=== PATIENT | female | born 1960 | race African-American/Black ===

== ENCOUNTER 2016-09-08 18:47 | Emergency (ER) | payer MEDICAID, OTHER ==
[~2016-09-08] VITALS: Ht 157.5 cm; Wt 48.5 kg
[~2016-09-08 18:47] MED LIST: BUTALB-ACETAMI1 EAC1 PO; CARBAMAZEPINE200 MG ORAL; GABAPENTIN300 MG ORAL; KEPPRA500 M4 ORAL; LEVETIRACETAM500 MG ORAL; PRAVASTATIN SOD20 M1 ORAL; TEGRETOL200 MG PO; TOPIRAMATE100 MG ORAL
[2016-09-08 19:08] VITALS: BP 159/81
[2016-09-08] MEDS ORDERED: Lidocaine 2% Visc 15ml soln ORAL ONE (19:15)
[2016-09-08] MEDS ORDERED: Famotidine 20 MG/ 2ML VIAL IVP ONE (19:15)
[2016-09-08] MEDS ORDERED: Dicyclomine HCl 10mg/5ml oral soln ORAL ONE (19:15)
[2016-09-08] MEDS ORDERED: Mylanta II UD 30ml ORAL ONE (19:15)
[2016-09-08] MEDS ORDERED: Ipratropium 0.02% Inh Soln 2.5ml UD HHN ONE (19:15)
[2016-09-08] MEDS ORDERED: Albuterol ud Inhalation HHN ONE (19:15)
[2016-09-08 19:50] LABS: TROPONIN I < 0.30 ng/mL (<=0.30)
[2016-09-08 19:55] LABS: ALANINE AMINOTRANSFERASE 15 U/L (3-33); ALBUMIN/GLOBULIN RATIO 1.5 (1.0-2.7); ANION GAP 17 (5-15); ASPARTATE AMINO TRANSFERASE 19 U/L (5-40); CALCIUM 9.2 mg/dL (8.6-10.2); CARBON DIOXIDE 23 mEQ/L (20-30); CHLORIDE 99 mEQ/L (98-107); CREATININE 0.7 mg/dL (0.5-0.9); GLOMERULAR FILTRATION RATE > 60 mL/min (>60); HEMOLYSIS 3; LIPASE 55 U/L (< 60); POTASSIUM 3.6 mEQ/L (3.4-4.9); SODIUM 139 mEQ/L (135-145); TOTAL PROTEIN 6.6 g/dL (6.6-8.7)
[2016-09-08 20:00] LABS: BASOPHILS % (AUTO) 1.2 % (0.0-2.0); EOSINOPHILS % (AUTO) 1.4 % (0.0-3.0); LYMPHOCYTES % (AUTO) 38.5 % (20.0-45.0); MEAN CORPUSCULAR HEMOGLOBIN 33.5 PG (27.0-31.0); MEAN CORPUSCULAR HGB CONC 33.6 G/DL (32.0-36.0); MEAN CORPUSCULAR VOLUME 100 FL (80-99); MEAN PLATELET VOLUME 6.9 FL (6.5-10.1); NEUTROPHILS % (AUTO) 51.9 % (45.0-75.0); PLATELET COUNT 218 K/UL (150-450); RED BLOOD COUNT 3.28 M/UL (4.20-5.40); RED CELL DISTRIBUTION WIDTH 11.8 % (11.6-14.8); WHITE BLOOD COUNT 5.8 K/UL (4.8-10.8)
[2016-09-08 20:02] LABS: APPEARANCE,URINE CLEAR; KETONES,URINE NEGATIVE (NEGATIVE); LEUKOCYTE ESTERASE ,URINE NEGATIVE (NEGATIVE); NITRITE,URINE NEGATIVE (NEGATIVE); PH,URINE 6.5 (4.5-8.0); PROTEIN,URINE NEGATIVE (NEGATIVE); UROBILINOGEN,URINE NORMAL MG/DL (0.0-1.0)
[2016-09-08 20:05] LABS: CKMB 1.6 ng/mL (< 3.8)
[2016-09-08] MEDS ORDERED: ZOFRAN ODT4 MG ORAL (20:44)
[2016-09-08] MEDS ORDERED: RANITIDINE HCL150 MG ORAL (20:44)
[2016-09-08] MEDS ORDERED: BENTYL10 MG ORAL (20:44)
[2016-09-08 21:01] VITALS: BP 125/70
[2016-09-08] MEDS ORDERED: ALBUTEROL SULF8.5 GM INH (21:15)
--- NOTE | 2016-09-09 14:23 | Emergency Room Report ---
History of Present Illness General Chief Complaint: Abdominal Pain Source: Patient Present Illness HPI 56-year-old female presents to ED for evaluation. Patient states she's been having abdominal pain with vomiting and diarrhea x3 days. Pain is cramping, 7/ 10, nonradiating. No aggravating or relieving factors. Denies chest pain or shortness of breath. Denies fevers chills. Denies dysuria or hematuria. Denies recent antibiotic use. Denies recent travel. Denies any other associated symptom Allergies: Coded Allergies: No Known Allergies (Unverified , 02/16/15) Patient History Past Medical History: HTN, COPD, seizures Past Surgical History: none Pertinent Family History: none Social History: Denies: alcohol use, drug use, smoking Now: No Immunizations: UTD Reviewed Nursing Documentation: PMH: Agreed, PSxH: Agreed Nursing Documentation-PMH Hx Hypertension: Yes Hx COPD: Yes Hx Seizures: Yes Review of Systems All Other Systems: negative except mentioned in HPI Physical Exam Vital Signs Date Time Temp Pulse Resp B/P Pulse Ox O2 Delivery O2 Flow Rate FiO2 09/08/16 18:46 98.2 69 18 139/68 100 09/08/16 19:08 Room Air Sp02 EP Interpretation: reviewed, normal General Appearance: no apparent distress, alert, GCS 15, non-toxic Head: normocephalic Eyes: bilateral eye PERRL, bilateral eye normal inspection ENT: normal ENT inspection Neck: normal inspection Respiratory: chest non-tender, normal breath sounds, speaking full sentences, wheezing Cardiovascular #1: regular rate, rhythm, no edema Gastrointestinal: normal bowel sounds, non tender, soft, non-distended, no guarding, no rebound Rectal: deferred Genitourinary: no CVA tenderness Musculoskeletal: normal inspection Neurologic: alert, oriented x3, responsive, motor strength/tone normal, sensory intact, speech normal Psychiatric: normal inspection Skin: normal inspection Lymphatic: normal inspection Medical Decision Making Diagnostic Impression: Primary Impression: Gastroenteritis Additional Impression: COPD (chronic obstructive pulmonary disease) Qualified Codes: J44.9 - Chronic obstructive pulmonary disease, unspecified ER Course Hospital Course 56-year-old F presents to ED with cramping abdominal pain with vomiting, diarrhea. also wheezing differential diagnosis: gastritis, SBO, cholecystits, gastroenteritis Clinical course Patient placed on stretcher. On youth nutritional monitor. After initial history and physical I ordered labs, IV fluids, Zofran and GI cocktail given nebulizer treatments for wheezing Labs - no leukocytosis, electrolytes ok, LFTs normal, UA unremarkable Upon reassessment, patient states pain has improved. findings consistent with gastroenteritis I feel this is a highly complex case requiring extensive working including EKG/ Rhythm strip, Xray/CT/US, Blood/urine lab work, repeat exams while in ED, and administration of strong opiates/narcotics for pain control, admission to hospital or close patient follow up. Diagnosis - gastroenteritis, COPD Stable and discharged to home with prescriptions for zofran, bentyl, albuterol. Followup with PMD. Return to ED if symptoms recur or worsen Labs Test 09/08/16 19:20 09/08/16 19:32 White Blood Count 5.8 K/UL (4.8-10.8) Red Blood Count 3.28 M/UL (4.20-5.40) Hemoglobin 11.0 G/DL (12.0-16.0) Hematocrit 32.7 % (37.0-47.0) Mean Corpuscular Volume 100 FL (80-99) Mean Corpuscular Hemoglobin 33.5 PG (27.0-31.0) Mean Corpuscular Hemoglobin Concent 33.6 G/DL (32.0-36.0) Red Cell Distribution Width 11.8 % (11.6-14.8) Platelet Count 218 K/UL (150-450) Mean Platelet Volume 6.9 FL (6.5-10.1) Neutrophils (%) (Auto) 51.9 % (45.0-75.0) Lymphocytes (%) (Auto) 38.5 % (20.0-45.0) Monocytes (%) (Auto) 7.0 % (1.0-10.0) Eosinophils (%) (Auto) 1.4 % (0.0-3.0) Basophils (%) (Auto) 1.2 % (0.0-2.0) Sodium Level 139 mEQ/L (135-145) Potassium Level 3.6 mEQ/L (3.4-4.9) Chloride Level 99 mEQ/L (98-107) Carbon Dioxide Level 23 mEQ/L (20-30) Anion Gap 17 (5-15) Blood Urea Nitrogen 13 mg/dL (7-23) Creatinine 0.7 mg/dL (0.5-0.9) Estimat Glomerular Filtration Rate > 60 mL/min (>60) Glucose Level 107 mg/dL (74-106) Calcium Level 9.2 mg/dL (8.6-10.2) Total Bilirubin < 0.2 mg/dL (0.0-1.2) Aspartate Amino Transf (AST/SGOT) 19 U/L (5-40) Alanine Aminotransferase (ALT/SGPT) 15 U/L (3-33) Alkaline Phosphatase 50 U/L (35-104) Total Creatine Kinase 99 U/L (26-140) Creatine Kinase MB 1.6 ng/mL (< 3.8) Creatine Kinase MB Relative Index 1.6 Troponin I < 0.30 ng/mL (<=0.30) Total Protein 6.6 g/dL (6.6-8.7) Albumin 4.0 g/dL (3.5-5.2) Globulin 2.6 g/dL Albumin/Globulin Ratio 1.5 (1.0-2.7) Lipase 55 U/L (< 60) Urine Color Pale yellow Urine Appearance Clear Urine pH 6.5 (4.5-8.0) Urine Specific [place] 1.005 (1.005-1.035) Urine Protein Negative (NEGATIVE) Urine Glucose (UA) Negative (NEGATIVE) Urine Ketones Negative (NEGATIVE) Urine Occult Blood Negative (NEGATIVE) Urine Nitrite Negative (NEGATIVE) Urine Bilirubin Negative (NEGATIVE) Urine Urobilinogen Normal MG/DL (0.0-1.0) Urine Leukocyte Esterase Negative (NEGATIVE) Last Vital Signs Date Time Temp Pulse Resp B/P Pulse Ox O2 Delivery O2 Flow Rate FiO2 09/08/16 21:01 64 15 125/70 99 Room Air 09/08/16 19:08 98.2 Status: improved Disposition: HOME, SELF-CARE Condition: Stable Scripts Albuterol Sulfate* (ALBUTEROL SULFATE MDI*) 8.5 Gm Hfa.aer.ad 2 PUFF INH Q6H, #1 EA 0 Refills Prov: STEVE RODRÍGUEZ M.D. 09/08/16 Dicyclomine Hcl* (BENTYL*) 10 Mg Capsule 10 MG ORAL FOUR TIMES A DAY, #20 CAP Prov: STEVE RODRÍGUEZ M.D. 09/08/16 Ondansetron Odt* (ZOFRAN ODT*) 4 Mg Tab.rapdis 4 MG ORAL Q6H Y for Nausea & Vomiting, #30 TAB 0 Refills Prov: STEVE RODRÍGUEZ M.D. 09/08/16 Ranitidine Hcl* (ZANTAC*) 150 Mg Tablet 150 MG ORAL TWICE A DAY, #30 TAB Prov: STEVE RODRÍGUEZ M.D. 09/08/16 Patient Instructions: Viral Gastroenteritis, Adult, [id number] STEVE RODRÍGUEZ M.D. Sep 09, 2016 14:23
== END 2016-09-08 21:22 | disposition home or self-care (01) ==
LOC: EDBD 18:47 → EMR 19:12
DX: K52.9 Noninfective gastroenteritis and colitis, unspecified (principal); J44.9 Chronic obstructive pulmonary disease, unspecified; I10 Essential (primary) hypertension
CPT/HCPCS: 36415; 80053; 81003; 82550; 82553; 83690; 84484; 85025; 94640; 94664; 96374; 96375; 99284; J2405; S0028

== ENCOUNTER 2016-09-27 00:32 | Emergency (ER) | payer OTHER ==
[~2016-09-27] VITALS: Ht 157.5 cm; Wt 56.7 kg
[~2016-09-27 00:32] MED LIST changes: +ALBUTEROL SULF8.5 GM INH; +BENTYL10 MG ORAL; +RANITIDINE HCL150 MG ORAL; +ZOFRAN ODT4 MG ORAL
[2016-09-27] MEDS ORDERED: Metoclopramide 10mg/2ml Inj IM ONE (02:00)
[2016-09-27] MEDS ORDERED: DuoNeb 0.5-3(2.5)mg/3ml neb HHN ONE (02:00)
[2016-09-27] MEDS ORDERED: ALBUTEROL SULF8.5 GM INH (03:29)
[2016-09-27 03:45] VITALS: BP 101/62
--- NOTE | 2016-09-30 22:21 | Emergency Room Report ---
History of Present Illness General Chief Complaint: Upper Respiratory Illness Source: Patient Present Illness HPI The patient is a 56-year-old female presented after increased headache. Patient gradual onset of symptoms. She had prior history of similar type headaches. Patient prior history of seizure disorder and she takes multiple medications. the patient reports drinking heavily earlier in the day. The patient denied loss of consciousness she denied any recent seizure activity. Allergies: Coded Allergies: No Known Allergies (Unverified , 02/16/15) Patient History Past Medical History: see triage record Reviewed Nursing Documentation: PMH: Agreed, PSxH: Agreed Nursing Documentation-PMH Hx Hypertension: Yes Hx COPD: Yes Hx Seizures: Yes Review of Systems All Other Systems: negative except mentioned in HPI Physical Exam Vital Signs Date Time Temp Pulse Resp B/P Pulse Ox O2 Delivery O2 Flow Rate FiO2 09/27/16 00:39 98.8 89 16 138/83 95 Room Air General Appearance: well appearing, no apparent distress, alert, GCS 15 Head: normocephalic, atraumatic ENT: hearing grossly normal, normal voice Neck: full range of motion, supple Respiratory: no respiratory distress, speaking full sentences, wheezing Cardiovascular #1: normal peripheral pulses, regular rate, rhythm, no edema Gastrointestinal: normal bowel sounds, non tender, soft Musculoskeletal: no calf tenderness Neurologic: normal inspection, alert, oriented x3, responsive, books salesperson III-XII nml as tested, normal gait Psychiatric: mood/affect normal Skin: no rash Medical Decision Making Diagnostic Impression: Primary Impression: COPD (chronic obstructive pulmonary disease) Additional Impression: Headache ER Course Patient presented for headache.Differential diagnoses included but was not limited to skull fracture, subarachnoid hemorrhage, meningitis, aneurysm, mass lesion, intracranial hemorrhage. The patient initially appears have some COPD. Patient was given breathing treatment. Patient given medication for headache. The patient was advised to comply with a seizure medications and avoid excessive alcohol.The patient is advised to follow up with primary care doctor in 1-2 days. Patient is advised to return if any worsening condition or if any changes in status that are concerning. Last Vital Signs Date Time Temp Pulse Resp B/P Pulse Ox O2 Delivery O2 Flow Rate FiO2 09/27/16 03:45 80 14 101/62 96 Room Air 09/27/16 03:45 98.8 Status: improved Disposition: HOME, SELF-CARE Condition: Stable Scripts Albuterol Sulfate* (ALBUTEROL SULFATE MDI*) 8.5 Gm Hfa.aer.ad 2 PUFF INH Q6H, #1 EA 0 Refills Prov: Phuc Gonzalez 09/27/16 Patient Instructions: Recurrent Migraine Headache, [id number], Chronic Obstructive Pulmonary Disease Exacerbation Phuc Gonzalez Sep 30, 2016 22:21
== END 2016-09-27 04:00 | disposition home or self-care (01) ==
LOC: EDBD 00:32 → EDUNIT# 00:32 → EMR 01:59
DX: R51 Headache (principal); J44.9 Chronic obstructive pulmonary disease, unspecified; I10 Essential (primary) hypertension
CPT/HCPCS: 94640; 94664; 96372; 99283; J2765; J7620

== ENCOUNTER 2016-10-01 00:37 | Emergency (ER) | payer OTHER ==
[~2016-10-01] VITALS: Ht 162.6 cm; Wt 49.9 kg
--- NOTE | 2016-10-01 00:44 | Emergency Room Report ---
History of Present Illness General Chief Complaint: Seizure Source: Medical Record, EMS Present Illness HPI Is a 56-year-old female with a history of seizure noncompliance. She had multiple visit for seizure before. She is supposed to be taking Tegretol and Keppra. Also on Topamax and gabapentin. She presents with a tonic-clonic seizure activity lasting for a minute. This was witnessed by family. They called 911. On arrival EMS said she was postictal and then had another seizure activity. They gave her Versed 5 mg IM. Now she is sedated. Allergies: Coded Allergies: No Known Allergies (Unverified , 02/16/15) Patient History Past Medical History: see triage record, COPD, seizures Past Surgical History: other Pertinent Family History: none Social History: Reports: smoking Now: No Immunizations: other Reviewed Nursing Documentation: PMH: Agreed, PSxH: Agreed Nursing Documentation-PMH Hx Hypertension: Yes Hx COPD: Yes Hx Seizures: Yes Review of Systems Eye: Denies: blurred vision, eye pain ENT: Denies: ear pain, nose congestion, throat swelling Respiratory: Denies: cough, shortness of breath Cardiovascular: Denies: chest pain, palpitations Gastrointestinal: Denies: abdominal pain, diarrhea, nausea, vomiting Musculoskeletal: Denies: back pain, joint pain Skin: Denies: rash Neurological: Denies: headache, numbness Endocrine: Denies: increased thirst, increased urine Hematologic/Lymphatic: Denies: easy bruising All Other Systems: negative except mentioned in HPI Physical Exam vitals unremarkable Sp02 EP Interpretation: reviewed, normal General Appearance: well appearing, no apparent distress, thin, Stupor Head: normocephalic, atraumatic Eyes: bilateral eye EOMI, bilateral eye PERRL, bilateral eye other - Pupils pinpoint ENT: normal pharynx Neck: full range of motion, supple, no meningismus Respiratory: chest non-tender, lungs clear, normal breath sounds Cardiovascular #1: regular rate, rhythm, no murmur Gastrointestinal: normal bowel sounds, non tender, no mass, no organomegaly, no bruit, non-distended Musculoskeletal: back normal, normal range of motion Neurologic: grossly normal Skin: warm/dry Medical Decision Making Diagnostic Impression: Primary Impression: Epileptic seizure, generalized Additional Impressions: Cocaine abuse Alcohol abuse Noncompliance Proteinuria ER Course Patient presents with seizure secondary to noncompliance an alcohol and drug abuse. She is now awake. Admits to using alcohol and cocaine. She does not want treatment or rehabilitation because she said it would not help. According to his son, she's been drinking more since her last year. Today would've been the one-year anniversary. Patient denies suicidal thoughts or homicidal thought. We'll discharge home. Her lactic acidosis probably secondary to seizure activity. Repeat lab was unremarkable. family and patient confirm that she does not drive. I will hold off filing DMV report bc of this. Lab Results Impression labs unremarkable Rhythm Strip Diag. Results EP Interpretation: yes Rhythm: NSR, no PVC's, no ectopy Status: improved Disposition: HOME, SELF-CARE Condition: Stable Patient Instructions: Seizure, Adult Additional Instructions: Abstain from drugs and alcohol. Take your medication. Go to rehabilitation for your alcohol and drug abuse. Followup with your Dr. within 7 days. Return if worse. STEFAN IBARRA M.D. Oct 01, 2016 00:44
[2016-10-01] MEDS ORDERED: levETIRAcetam 500 MG in D5W 110 ML IV ONE (00:45)
[2016-10-01] MEDS ORDERED: TEGRETOL200 MG PO (00:48)
[2016-10-01] MEDS ORDERED: Tubing IV Cassette IV ONE (01:07)
[2016-10-01] MEDS ORDERED: levETIRAcetam 500mg vial IV ONE (01:07)
[2016-10-01 01:12] LABS: BASOPHILS % (AUTO) 1.1 % (0.0-2.0); EOSINOPHILS % (AUTO) 0.6 % (0.0-3.0); LYMPHOCYTES % (AUTO) 38.9 % (20.0-45.0); MEAN CORPUSCULAR HEMOGLOBIN 33.8 PG (27.0-31.0); MEAN CORPUSCULAR HGB CONC 33.8 G/DL (32.0-36.0); MEAN CORPUSCULAR VOLUME 100 FL (80-99); MEAN PLATELET VOLUME 7.9 FL (6.5-10.1); MONOCYTES % (AUTO) 5.4 % (1.0-10.0); NEUTROPHILS % (AUTO) 54.1 % (45.0-75.0); PLATELET COUNT 206 K/UL (150-450); RED BLOOD COUNT 3.85 M/UL (4.20-5.40); WHITE BLOOD COUNT 10.2 K/UL (4.8-10.8)
[2016-10-01 01:32] LABS: ALCOHOL < 10 mg/dL; ANION GAP 32 (5-15); CALCIUM 8.8 mg/dL (8.6-10.2); CARBAMAZEPINE (TEGRETOL) < 2.0 ug/mL (4.0-12.0); CARBON DIOXIDE 12 mEQ/L (20-30); CHLORIDE 92 mEQ/L (98-107); CREATININE 1.3 mg/dL (0.5-0.9); HEMOLYSIS 39; POTASSIUM 3.4 mEQ/L (3.4-4.9); SODIUM 136 mEQ/L (135-145)
[2016-10-01 01:54] LABS: APPEARANCE,URINE SLIGHTLY CLOUDY
[2016-10-01 01:55] LABS: KETONES,URINE NEGATIVE (NEGATIVE); LEUKOCYTE ESTERASE ,URINE NEGATIVE (NEGATIVE); NITRITE,URINE NEGATIVE (NEGATIVE); PROTEIN,URINE 1+ (NEGATIVE); UROBILINOGEN,URINE NORMAL MG/DL (0.0-1.0)
[2016-10-01 01:57] LABS: AMORPHOUS SEDIMENT,UR MANY /LPF; BACTERIA,URINE FEW /HPF; RBC,URINE 0-2 /HPF (0 - 2); SQUAMOUS EPITHELIAL CELL,UR FEW /LPF (NONE/OCC); WBC,URINE 0-2 /HPF (0 - 2)
[2016-10-01 02:26] VITALS: BP 150/94
[2016-10-01 03:02] LABS: ANION GAP 17 (5-15); CALCIUM 7.8 mg/dL (8.6-10.2); CARBON DIOXIDE 20 mEQ/L (20-30); CHLORIDE 100 mEQ/L (98-107); CREATININE 0.9 mg/dL (0.5-0.9); GLOMERULAR FILTRATION RATE > 60 mL/min (>60); HEMOLYSIS 13; POTASSIUM 3.5 mEQ/L (3.4-4.9); SODIUM 137 mEQ/L (135-145)
[2016-10-01 03:54] VITALS: BP 138/77
[2016-10-01 05:20] VITALS: BP 129/80
[2016-10-01 06:50] VITALS: BP 127/80
[2016-10-01 07:40] VITALS: BP 127/80
== END 2016-10-01 07:40 | disposition home or self-care (01) ==
LOC: EDUNIT# 00:37 → EDBD 00:37 → EMR 00:47
DX: G40.409 Other generalized epilepsy and epileptic syndromes, not intractable, without status epilepticus (principal); F14.10 Cocaine abuse, uncomplicated; F10.10 Alcohol abuse, uncomplicated; R80.9 Proteinuria, unspecified; F17.200 Nicotine dependence, unspecified, uncomplicated; I10 Essential (primary) hypertension; J44.9 Chronic obstructive pulmonary disease, unspecified
CPT/HCPCS: 36415; 80048; 80156; 80300; 81003; 81025; 85025; 96360; 96361; 99284; G0480; J1953; 80329

== ENCOUNTER 2017-08-30 16:51 | Emergency (ER) | payer MEDICAID, OTHER ==
[~2017-08-30] VITALS: Ht 162.6 cm; Wt 59.0 kg
[2017-08-30] MEDS ORDERED: Norco 5mg/325mg tab ORAL ONE (18:45)
[2017-08-30] MEDS ORDERED: ACETAMINOPHEN-1 EAC1 ORAL (19:24)
[2017-08-30 20:04] VITALS: BP 139/90
[2017-08-30 20:05] VITALS: BP 151/94
--- NOTE | 2017-08-30 22:29 | Emergency Room Report ---
History of Present Illness General Chief Complaint: Upper Extremity Injury Source: Patient (TJ PHELPS) Present Illness HPI The patient is a 57-year-old female presenting for right wrist pain. She states that she fell down 3 days ago onto her right hand. Pain is an 8/10 dull ache and does not radiate. Worse with movement. She denies previous injury to the wrist. She has not taken any pain medications. She denies any other symptoms (TJ PHELPS) Allergies: Coded Allergies: No Known Allergies (Unverified , 02/16/15) Patient History Past Medical History: see triage record Pertinent Family History: none Reviewed Nursing Documentation: PMH: Agreed, PSxH: Agreed (TJ PHELPS) Nursing Documentation-PMH Past Medical History: No History, Except For Hx Hypertension: Yes Hx COPD: Yes Hx Seizures: Yes (TJ PHELPS) Review of Systems All Other Systems: negative except mentioned in HPI (TJ PHELPS) Physical Exam Vital Signs Date Time Temp Pulse Resp B/P (MAP) Pulse Ox O2 Delivery O2 Flow Rate FiO2 08/30/17 18:08 99.0 68 16 151/94 98 Room Air Sp02 EP Interpretation: reviewed, normal General Appearance: no apparent distress, alert, GCS 15, non-toxic Head: normocephalic, atraumatic Eyes: bilateral eye normal inspection, bilateral eye PERRL Musculoskeletal: decreased range of motion - R wrist, tender - TTP over the R lateral wrist Neurologic: alert, oriented x3, responsive, motor strength/tone normal, sensory intact, speech normal Psychiatric: judgement/insight normal, memory normal, mood/affect normal, no suicidal/homicidal ideation Skin: normal color, no rash, warm/dry, well hydrated (TJ PHELPS P.ARashawn) Procedures Splinting Splinting : Consent: Verbal Location: R arm Pre-Made Type: metal Splint: volar Pre-Proc Neuro Vasc Exam: normal Post-Proc Neuro Vasc Exam: normal Patient Tolerated: Well Complications: None (TJ PHELPS.ARashawn) Medical Decision Making PA Attestation Dr. Esparza is my supervising physician. Patient management was discussed with my supervising physician (TJ PHELPS) Diagnostic Impression: Primary Impression: Radial fracture Qualified Codes: S52.501A - Unspecified fracture of the lower end of right radius, initial encounter for closed fracture ER Course The patient is a 57-year-old female presenting for right wrist pain. Ddx considered include but not limited to sprain/strain, fracture, contusion PE: NAD TTP over the R wrist. Limited AROM wrist. No edema or ecchymosis Xray shows fracture of the distal radius. Non displaced. Volar splint paced. She will be WA'ed home with prescription for pain medication. ER precautions given (TJ PHELPS.ARashawn) ER Course I have reviewed the PA's interpretation of Xray results and agree with findings. (Fer Esparza M.D.) Other X-Ray Diagnostic Results Other X-Ray Diagnostic Results #1: X-Ray ordered: R wrist # of Views/Limited Vs Complete: 3 View Indication: Pain EP Interpretation: Yes PA Xray: Interpretation reviewed, by supervising MD, and agrees with findings. Interpretation: no dislocation, no soft tissue swelling, other - fracture Impression: Other - fracture of distal radius Electronically Signed by: Tj Phelps PA-C Other X-Ray Diagnostic Results #2: X-Ray ordered: R hand # of Views/Limited Vs Complete: 3 View Indication: Pain EP Interpretation: Yes PA Xray: Interpretation reviewed, by supervising MD, and agrees with findings. Interpretation: no dislocation, no soft tissue swelling, no fractures Impression: No acute disease Electronically Signed by: Tj Phelps PA-C (TJ PHELPS P.ARashawn) Last Vital Signs Date Time Temp Pulse Resp B/P (MAP) Pulse Ox O2 Delivery O2 Flow Rate FiO2 08/30/17 20:05 99.0 16 151/94 98 Room Air 08/30/17 20:04 71 Status: improved (TJ PHELPS PRashawnARashawn) Disposition: HOME, SELF-CARE Condition: Improved Scripts Acetaminophen With Codeine (T#3) (TYLENOL #3 TAB*) Y Tab 1 TAB ORAL Q6HR Y for For Pain, #10 TAB Prov: TJ PHELPS.ARashawn 08/30/17 Patient Instructions: Wrist Fracture, [id number], Radial Fracture Additional Instructions: I discussed my findings with the patient. All questions and concerns have been answered. Treatment and medication compliance have been addressed. I advised the patient that they need to follow up with PMD in 3-5 days. Return to ED if pain remains or worsens, numbness or tingling occurs, new rash is noticed, fever is noticed, or if needed for any reason. Patient verbalized understanding of discharge instructions. TJ PHELPS Aug 30, 2017 22:29 Fer Esaprza M.D. Sep 03, 2017 13:58
--- NOTE | 2017-08-31 08:56 | Diagnostic Imaging Report ---
. Indication: Pain, status post fall Technique: 3 views hand Comparison: none Findings: The bones are osteoporotic. There is some dorsal soft tissue swelling. No acute fractures. No dislocations. There is deformity of the base of the second proximal phalanx which is probably a chronic fracture deformity. Lucency of the distal radius is better appreciated on wrist radiographs, consistent with a fracture. Mild degenerative proliferative changes of the first interphalangeal joint are noted. Impression: Positive for distal radial fracture Old fracture deformity base of the second proximal phalanx. Degenerative changes of the first interphalangeal joint Dorsal soft tissue swelling This agrees with the preliminary interpretation provided overnight by [facility].
--- NOTE | 2017-08-31 08:57 | Diagnostic Imaging Report ---
Clinical Indication:Reason For Exam: PAIN Technique: 3 views of the right wrist Comparison: None Findings: There is a nondisplaced fracture of the distal radius. This is transverse. Uncertain as to whether or not this involves the articular surface. No carpal fracture demonstrated. There is dorsal soft tissue swelling. Impression: Positive for distal radial fracture. This agrees with the preliminary interpretation provided overnight by [facility].
== END 2017-08-30 20:06 | disposition home or self-care (01) ==
LOC: EMR 19:07
DX: S52.501A Unspecified fracture of the lower end of right radius, initial encounter for closed fracture (principal); W10.9XXA Fall (on) (from) unspecified stairs and steps, initial encounter; Y92.89 Other specified places as the place of occurrence of the external cause; J44.9 Chronic obstructive pulmonary disease, unspecified; I10 Essential (primary) hypertension
CPT/HCPCS: 99284

== ENCOUNTER 2017-12-30 12:50 | Inpatient (IN) | payer MEDICAID, OTHER ==
[~2017-12-30] VITALS: Ht 162.6 cm; Wt 54.4 kg
[~2017-12-30 12:50] MED LIST changes: +ACETAMINOPHEN-1 EAC1 ORAL
[2017-12-30 13:05] VITALS: BP 146/80
[2017-12-30] MEDS ORDERED: levETIRAcetam 1,000mg/NS100ml 100 ML IVPB ONE (13:15)
[2017-12-30] MEDS ORDERED: LORazepam Inj 2mg/ml 1ml IV ONE (13:15)
[2017-12-30 13:41] LABS: BASOPHILS % (AUTO) 1.3 % (0.0-2.0); EOSINOPHILS % (AUTO) 1.5 % (0.0-3.0); HEMATOCRIT 44.1 % (37.0-47.0); HEMOGLOBIN 14.7 G/DL (12.0-16.0); LYMPHOCYTES % (AUTO) 43.9 % (20.0-45.0); MEAN CORPUSCULAR VOLUME 95 FL (80-99); MONOCYTES % (AUTO) 5.2 % (1.0-10.0); NEUTROPHILS % (AUTO) 48.1 % (45.0-75.0); PLATELET COUNT 283 K/UL (150-450); RED BLOOD COUNT 4.64 M/UL (4.20-5.40); RED CELL DISTRIBUTION WIDTH 13.7 % (11.6-14.8); WHITE BLOOD COUNT 9.7 K/UL (4.8-10.8)
[2017-12-30 13:48] LABS: APPEARANCE,URINE CLEAR; BILIRUBIN, URINE NEGATIVE (NEGATIVE); COLOR,URINE PALE YELLOW; GLUCOSE, URINE (UA) NEGATIVE (NEGATIVE); KETONES,URINE NEGATIVE (NEGATIVE); LEUKOCYTE ESTERASE ,URINE NEGATIVE (NEGATIVE); NITRITE,URINE NEGATIVE (NEGATIVE); PH,URINE 5 (4.5-8.0); PROTEIN,URINE 3+ (NEGATIVE); UROBILINOGEN,URINE NORMAL MG/DL (0.0-1.0)
[2017-12-30 13:58] LABS: ALANINE AMINOTRANSFERASE 27 U/L (12-78); ALBUMIN 4.8 G/DL (3.4-5.0); ALBUMIN/GLOBULIN RATIO 1.2 (1.0-2.7); ALKALINE PHOSPHATASE 96 U/L (46-116); ANION GAP 24 mmol/L (5-15); ASPARTATE AMINO TRANSFERASE 35 U/L (15-37); BILIRUBIN,TOTAL 0.6 MG/DL (0.2-1.0); BLOOD UREA NITROGEN 15 mg/dL (7-18); CALCIUM 10.6 MG/DL (8.5-10.1); CARBON DIOXIDE 18 MMOL/L (21-32); CHLORIDE 106 MMOL/L (98-107); CREATININE 0.9 MG/DL (0.55-1.30); POTASSIUM 4.5 MMOL/L (3.5-5.1); SODIUM 148 MMOL/L (136-145)
--- NOTE | 2017-12-30 14:40 | Emergency Room Report ---
History of Present Illness General Chief Complaint: Seizure Source: EMS Present Illness HPI 57-year-old female presents ED for evaluation. Patient brought in by EMS status post seizure. Unwitnessed seizure at home. History of seizures. Upon arrival patient is lethargic and not answering any questions. Unclear whether patient is compliant with her medications. History of substance abuse. No other aggravating relieving factors. Denies any other associated symptoms Allergies: Coded Allergies: No Known Allergies (Unverified , 02/16/15) UNABLE TO ASSESS (Unverified , 12/30/17) Patient History Past Medical History: HTN, COPD, seizures Past Surgical History: none Pertinent Family History: none Social History: Denies: smoking, alcohol use, drug use Now: No Immunizations: UTD Reviewed Nursing Documentation: PMH: Agreed; PSxH: Agreed Nursing Documentation-PMH Hx Hypertension: Yes Hx COPD: Yes Hx Seizures: Yes Review of Systems All Other Systems: limited Physical Exam Vital Signs Date Time Temp Pulse Resp B/P (MAP) Pulse Ox O2 Delivery O2 Flow Rate FiO2 12/30/17 12:58 97.8 86 16 130/80 98 Room Air 97.9 12/30/17 13:20 15.0 Sp02 EP Interpretation: reviewed, normal General Appearance: lethargic, Postictal Head: normocephalic Eyes: bilateral eye normal inspection, bilateral eye PERRL ENT: normal ENT inspection Neck: normal inspection Respiratory: chest non-tender, lungs clear, normal breath sounds, speaking full sentences Cardiovascular #1: regular rate, rhythm, no edema Gastrointestinal: normal bowel sounds, non tender, soft, non-distended, no guarding, no rebound Rectal: deferred Genitourinary: no CVA tenderness Musculoskeletal: normal inspection Neurologic: other - lethargic Psychiatric: other - lethargic Skin: normal inspection Lymphatic: normal inspection Medical Decision Making Diagnostic Impression: Primary Impression: Seizure disorder Additional Impressions: Hypernatremia Cocaine abuse ER Course Hospital Course 57-year-old F presents to ED status post seizure. Differential diagnosis includes- breakthrough seizure, alcohol abuse, noncompliance with medication Clinical course Patient placed on stretcher. Initial history and physical I ordered labs, IV fluids, CT brain Patient had seizure shortly upon arrival and was given an additional dose of Ativan Labs- Na 148, leukocytosis noted, hemoglobin/hematocrit stable. Utox + cocaine EKG - sinus tachycardia, no acute ischemic changes interpreted by me CT Brain ok Given loading dose of Keppra. Given that patient is still altered I believe she should be admitted. Case discussed with Dr. Acosta and he agreed to accept the patient to his service for further care and support. i. I feel this is a highly complex case requiring extensive working including EKG/Rhythm strip, Xray/CT/US, Blood/urine lab work, repeat exams while in ED, and administration of strong opiates/narcotics for pain control, admission to hospital or close patient follow up. Diagnosis - seizure, hypernatremia, cocaine abuse admitted to telemetry in serious condition Labs Test 12/30/17 13:00 White Blood Count 9.7 K/UL (4.8-10.8) Red Blood Count 4.64 M/UL (4.20-5.40) Hemoglobin 14.7 G/DL (12.0-16.0) Hematocrit 44.1 % (37.0-47.0) Mean Corpuscular Volume 95 FL (80-99) Mean Corpuscular Hemoglobin 31.7 PG (27.0-31.0) Mean Corpuscular Hemoglobin Concent 33.3 G/DL (32.0-36.0) Red Cell Distribution Width 13.7 % (11.6-14.8) Platelet Count 283 K/UL (150-450) Mean Platelet Volume 7.0 FL (6.5-10.1) Neutrophils (%) (Auto) 48.1 % (45.0-75.0) Lymphocytes (%) (Auto) 43.9 % (20.0-45.0) Monocytes (%) (Auto) 5.2 % (1.0-10.0) Eosinophils (%) (Auto) 1.5 % (0.0-3.0) Basophils (%) (Auto) 1.3 % (0.0-2.0) Urine Color Pale yellow Urine Appearance Clear Urine pH 5 (4.5-8.0) Urine Specific [place] 1.020 (1.005-1.035) Urine Protein 3+ (NEGATIVE) Urine Glucose (UA) Negative (NEGATIVE) Urine Ketones Negative (NEGATIVE) Urine Occult Blood 2+ (NEGATIVE) Urine Nitrite Negative (NEGATIVE) Urine Bilirubin Negative (NEGATIVE) Urine Urobilinogen Normal MG/DL (0.0-1.0) Urine Leukocyte Esterase Negative (NEGATIVE) Urine RBC 2-4 /HPF (0 - 2) Urine WBC 0-2 /HPF (0 - 2) Urine Squamous Epithelial Cells Many /LPF (NONE/OCC) Urine Bacteria Few /HPF (NONE) Sodium Level 148 MMOL/L (136-145) Potassium Level 4.5 MMOL/L (3.5-5.1) Chloride Level 106 MMOL/L (98-107) Carbon Dioxide Level 18 MMOL/L (21-32) Anion Gap 24 mmol/L (5-15) Blood Urea Nitrogen 15 mg/dL (7-18) Creatinine 0.9 MG/DL (0.55-1.30) Estimat Glomerular Filtration Rate > 60 mL/min (>60) Glucose Level 138 MG/DL (74-106) Calcium Level 10.6 MG/DL (8.5-10.1) Total Bilirubin 0.6 MG/DL (0.2-1.0) Aspartate Amino Transf (AST/SGOT) 35 U/L (15-37) Alanine Aminotransferase (ALT/SGPT) 27 U/L (12-78) Alkaline Phosphatase 96 U/L (46-116) Total Protein 8.8 G/DL (6.4-8.2) Albumin 4.8 G/DL (3.4-5.0) Globulin 4.0 g/dL Albumin/Globulin Ratio 1.2 (1.0-2.7) Salicylates Level 4.1 ug/mL (2.8-20) Urine Opiates Screen Negative (NEGATIVE) Acetaminophen Level < 2 MCG/ML (10-30) Urine Barbiturates Screen Negative (NEGATIVE) Carbamazepine (Tegretol) Level < 0.5 ug/mL (4.0-12.0) Phencyclidine (PCP) Screen Negative (NEGATIVE) Urine Amphetamines Screen Negative (NEGATIVE) Urine Benzodiazepines Screen Negative (NEGATIVE) Urine Cocaine Screen Positive (NEGATIVE) Urine Marijuana (THC) Screen Negative (NEGATIVE) Serum Alcohol < 3 mg/dL EKG Diagnostic Results Rate: tachycardiac Rhythm: NSR ST Segments: no acute changes ASA given to the pt in ED: No Rhythm Strip Diag. Results EP Interpretation: yes Rhythm: NSR, no PVC's, no ectopy CT/MRI/US Diagnostic Results CT/MRI/US Diagnostic Results : Imaging Test Ordered: CT Head Impression no acute process Last Vital Signs Date Time Temp Pulse Resp B/P (MAP) Pulse Ox O2 Delivery O2 Flow Rate FiO2 12/30/17 13:20 114 18 Non-Rebreather 15.0 12/30/17 13:05 97.9 146/80 100 97.9 Status: improved Disposition: ADMITTED INPATIENT Condition: Serious Referrals: [facility],REFERRING (PCP) Bob Joshi MD December 30, 2017 14:40
[2017-12-30 14:48] VITALS: BP 136/79
[2017-12-30 16:50] VITALS: BP 136/100
[2017-12-30] MEDS ORDERED: PRAVACHOL40 MG ORAL (17:39)
[2017-12-30] MEDS ORDERED: TOPIRAMATE100 MG ORAL (17:39)
[2017-12-30] MEDS ORDERED: EXCEDRIN MIGRA1 EAC1 PO (17:40)
[2017-12-30 18:32] VITALS: BP 133/78
[2017-12-30] MEDS ORDERED: LORazepam Inj 2mg/ml 1ml IV PRN (18:58)
[2017-12-30] MEDS ORDERED: Albuterol 90mcg Inhaler 8gm INH PRN (19:14)
[2017-12-30 20:00] VITALS: BP 142/78
[2017-12-30] MEDS ORDERED: Topiramate 100mg tab ORAL SCH (20:00)
[2017-12-31] VITALS: BP 126/68
[2017-12-31 04:00] VITALS: BP 126/74
[2017-12-31] MEDS: Excedrin Migraine tab ORAL PRN (04:33)
[2017-12-31 08:00] VITALS: BP 112/63
[2017-12-31] MEDS: Topiramate 100mg tab ORAL SCH (08:22)
--- NOTE | 2017-12-31 11:18 | History & Physical ---
History and Physical History & Physicial hp dictated # [id number] DARYN WEINER December 31, 2017 11:18
--- NOTE | 2017-12-31 11:45 | Cardiology Report ---
APPROVED REPORT EKG Measurement Heart [id number] Sinus tachycardia with premature supraventricular complexes Otherwise normal ECG
--- NOTE | 2017-12-31 11:56 | Consultation ---
Consult Note Consult Note NEUROLOGY CONSULTATION: Full note dictated #[id number] 57 y/o, RH, BF with H/O Sz since age 18 Seizures occur once every week or 2. Seizures are GTC Possible relation to cocaine and ETOH. ON EXAM: Cognitive dysfunction. No focal findings. IMPRESSION: GTC seizure disorder with possible relationship to ETOH and cocaine use. REC: Seizure hygiene. Keppra 500 mg q 12 H EEG to determine type of seizure disorder. Mario Alberto Melo M.D., M.S.P.H. MARIO ALBETRO MELO December 31, 2017 11:56
[2017-12-31 12:00] VITALS: BP 119/64
[2017-12-31 16:00] VITALS: BP 144/67
--- NOTE | 2017-12-31 19:45 | History and Physical Report ---
DATE OF ADMISSION: 12/30/2017 CHIEF COMPLAINT: The patient was brought in by paramedics after a seizure. HISTORY OF PRESENT ILLNESS: This is a 57-year-old female, who lives at home apparently with her kids. The patient was brought in by paramedics for seizures, which was unwitnessed at home. The patient does have a history of seizure and she said that she was not taking her medications regularly. Upon arrival, she was lethargic and not answering questions. She is alert now, but however she does not remember what happened. She has also history of alcohol abuse and cocaine abuse. PAST MEDICAL HISTORY: History of hypertension, COPD, and seizures. MEDICATIONS: Reviewed in the EMR. SOCIAL HISTORY: As mentioned, the patient drinks alcohol heavily. The patient also smokes a pack a day and she is also using drugs. ALLERGIES: No known drug allergies. REVIEW OF SYSTEMS: Noncontributory except above. PHYSICAL EXAMINATION: GENERAL: The patient is a 57-year-old female, in no acute distress. VITAL SIGNS: Blood pressure 144/86, pulse 96, temperature 97.5 degrees, and respiratory rate is 20. HEENT: [place] conjunctivae. Anicteric sclerae. NECK: Supple. LUNGS: Clear to auscultation. HEART: S1 and S2 without murmurs or rubs. ABDOMEN: Soft and nontender. EXTREMITIES: No cyanosis or edema. LABORATORY AND DIAGNOSTIC DATA: Laboratory findings, the chemistry panel shows serum sodium 148, potassium 4.5, chloride 106, CO2 18, BUN is 15, creatinine 0.9, and blood sugar is 138. Albumin is 4.8. CBC shows a WBC of 9.7, hematocrit is 44.1, hemoglobin 14.7, and platelets 283,000. UA shows 3+ protein. ASSESSMENT: This is a 57-year-old female, who was admitted after episode of seizure, which was witnessed at home. She has multiple risk factors and besides the fact that she is not taking her seizure medications, she is also drinking alcohol heavily and also using cocaine. PLAN: The patient will be monitored on telemetry. She will be seen by Dr. Melo in Neurology consultation. Her seizure medications will be resumed. The patient is on p.r.n. Ativan for any seizure activity and hopefully we can discharge her soon. Jeffrey Acosta M.D. DR: KIMBERLY JOB#: [id number] CC:
[2017-12-31 20:00] VITALS: BP 149/89
--- NOTE | 2017-12-31 20:15 | Consultation ---
DATE OF CONSULTATION: 12/31/2017 NEUROLOGY CONSULTATION CONSULTING PHYSICIAN: Nic Melo M.D. REQUESTING PHYSICIAN: Jeffrey Acosta M.D. HISTORY: Ms. Nikki Yung is a 57-year-old, right-handed, black lady, who has had seizures since she was age 18. At this point in time, she states that she had seizures that occur every week or two. Her seizures by description are generalized tonic-clonic seizures. She apparently falls down and then has generalized body jerking that lasts for a few minutes and following that she is confused and disoriented for some time. On occasion, she has bitten her tongue and on occasion she has also urinated on herself during the seizures. She is supposed to take Keppra 500 mg 3 times a day for her seizures, but she only takes the Keppra when she has a seizure. She also uses cocaine quite liberally and in addition, on the weekends, she also has a bottle of liquor over Monday, Monday and Monday. She also complains of frequent headaches, which she calls migraines and she is on Topamax for migraine prophylaxis. She was hospitalized on 12/30/2017 for breakthrough seizure at home followed by lethargy. PAST MEDICAL HISTORY: Significant for hypertension, chronic obstructive pulmonary disease, seizure disorder, and alcohol and cocaine use. FAMILY HISTORY: Nothing significant as per the patient, specifically no family history of seizures. PERSONAL HISTORY: Home: She lives at home with 6 children. 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 Habits: She uses cocaine frequently especially on the weekends. She also consumes a bottle of alcohol (size variable) over the weekend. MEDICATIONS: Present medications include Keppra 500 mg 3 times a day, Topamax 100 mg daily, pravastatin, albuterol, Tylenol, Ativan p.r.n, and Excedrin Migraine p.r.n. PHYSICAL EXAMINATION: GENERAL: She is a well-developed, well-nourished, pleasant black lady, sitting up at the edge of her bed, in no acute distress. VITAL SIGNS: Pulse 64 per minute, blood pressure 112/63 mmHg, respirations 20 per minute, and temperature 97.7 degrees Fahrenheit. HEAD: Normocephalic and atraumatic. EENT: Examination benign. NECK: No neck rigidity was observed. NEUROLOGIC EXAMINATION: MENTAL STATUS EXAMINATION: She was awake and alert. She was oriented to person, place, and time except for the exact date and name of the hospital. She was able to recall 3/3 words immediately, but could only remember 2/3 words in 1 minute and 3 minutes even on the second trial. She was able to remember presidents, Trump and Obama, but could not remember presidents prior to that. Her mathematical skills were impaired. Her visuospatial function was also impaired. SPEECH: She had no dysarthria. LANGUAGE: She had a mild anomia for low-frequency words, but it is unclear as to what her educational level. CRANIAL NERVE EXAMINATION: II: The visual espinosa were intact to confrontation testing. III, IV & : External ocular movements were full and the pupils 3 mm in diameter, equal, round, regular, and reactive to light. V: She had normal facial sensations and the temporales, masseters, and pterygoids functioned normally. VII: She had normal facial expressions and no facial asymmetry. VIII: She was able to hear well bilaterally and had no nystagmus. IX: The palate moved symmetrically on phonation. X: She had no hoarseness of voice. XI: The sternocleidomastoids and trapezii functioned normally. XII: The tongue was in the midline without any fasciculations or atrophy. MOTOR SYSTEM: The tone was normal in all four extremities. Examination of muscle mass revealed no focal wasting. Examination of power revealed grade 5/5 power in all muscle groups . SENSORY EXAMINATION: She had intact sensations to pinprick, light touch, and graphesthesia. COORDINATION: She performed well on [id number] and nttz-ky-[id number] testing. On Romberg test, she swayed, but did not fall to one side or the other. REFLEXES: 1++ and bilaterally symmetrical at the biceps, triceps, brachioradialis, and knees, and 1+ at both ankles. The plantar responses were flexor bilaterally. STANCE: She had a minimally wide-based, but stable stance. GAIT: She walked with a minimally wide-based, but stable gait. DIAGNOSTIC IMPRESSION: 1. Ms. Nikki Yung is a 57-year-old, right-handed, black lady, who does have a past history of hypertension, dyslipidemia, seizures since age 18 and headaches labeled migraines, who was hospitalized after having a single seizure at home. By report, her seizures are generalized tonic-clonic seizures. She had been using cocaine and alcohol prior to seizure. 2. On neurological examination, at this time, she does have problems with orientation, recent and remote memory, visuospatial function, higher cognitive function, and language. She, however, does not demonstrate any focal or lateralizing neurological findings. 3. Laboratory data on admission revealed a revealed relatively normal CBC. A blood glucose elevated to 138. A toxicology screen positive for cocaine and a relatively normal urinalysis. 4. A CT scan of the brain performed in the near past was normal. 5. The patient's history, neurological examination, and laboratory data are most compatible with an underlying generalized tonic-clonic seizure disorder with possible relationship to alcohol and cocaine use. The seizures are not well controlled because she is not taking her antiseizure medicine on a prophylactic basis, and only takes it when she has a seizure. She also consumes large quantities of alcohol, and cocaine, which could be bringing on her seizures. RECOMMENDATIONS: 1. The patient was given an explanation of the above-mentioned findings. 2. She was told about the basics of seizure hygiene. She was told to have 3 meals a day. She was told to sleep well - that is 7 hours or more in a 24-hour period. She was also told to take her antiseizure medicine on a regular basis. She was told to use no illicit drugs. She was told to use no alcohol. 3. An EEG will be ordered to evaluate the patient for the type of seizure disorder. 4. The patient will be maintained on Keppra 500 mg q.12 h. of seizure prophylaxis. 5. The patient should be followed up by a neurologist on a regular basis for management of her seizure disorder. Thank you for entrusting me with the care of Ms. Yung. I shall follow her with you. Nic Melo M.D., M.S.P.H. DR: QUIRINO JOB#: [id number] [facility]ITALFoster
[2018-01-01 04:00] VITALS: BP 120/68
[2018-01-01 08:00] VITALS: BP 118/70
[2018-01-01] MEDS: Topiramate 100mg tab ORAL SCH (08:32)
[2018-01-01 12:00] VITALS: BP 125/91
[2018-01-01] MEDS: Excedrin Migraine tab ORAL PRN (12:04)
--- NOTE | 2018-01-01 14:24 | General Progress Note ---
Assessment/Plan Problem List: (1) Seizure disorder ICD Codes: G40.909 - Epilepsy, unspecified, not intractable,without status epilepticus SNOMED: 424982819 (2) COPD (chronic obstructive pulmonary disease) ICD Codes: J44.9 - Chronic obstructive pulmonary disease, unspecified SNOMED: 38499405 (3) Cocaine abuse ICD Codes: F14.10 - Cocaine abuse, uncomplicated SNOMED: 24555166 (4) Hypernatremia ICD Codes: E87.0 - Hyperosmolality and hypernatremia SNOMED: 95525191 Assessment/Plan await EEG cont with seizure meds DC when cleared by neurologist Subjective Allergies: Coded Allergies: No Known Allergies (Unverified , 02/16/15) UNABLE TO ASSESS (Unverified , 12/30/17) Subjective feels ok Objective Last 24 Hour Vital Signs Date Time Temp Pulse Resp B/P (MAP) Pulse Ox O2 Delivery O2 Flow Rate FiO2 01/01/18 13:03 97.6 01/01/18 12:04 97.6 01/01/18 12:00 98.3 67 20 125/91 99 Room Air 98.3 01/01/18 12:00 60 01/01/18 08:45 57 18 Room Air 21 01/01/18 08:00 97.6 67 20 118/70 99 Room Air 97.6 01/01/18 08:00 70 01/01/18 04:00 56 01/01/18 04:00 97.0 65 20 120/68 99 Room Air 97.0 01/01/18 00:23 66 12/31/17 20:45 70 12/31/17 20:00 98.4 71 20 149/89 96 Room Air 98.4 12/31/17 16:00 69 12/31/17 16:00 97.9 70 20 144/67 99 Room Air 97.9 Intake and Output 12/31/17 01/01/18 19:00 07:00 Intake Total 360 ml Balance 360 ml Intake Oral 360 ml # Voids 2 1 Height (Feet): 5 Height (Inches): 4.00 Weight (Pounds): 120 Cardiovascular: normal rate Respiratory/Chest: lungs clear Edema: no edema noted DARYN Neal January 01, 2018 14:24
[2018-01-01 16:00] VITALS: BP 136/79
--- NOTE | 2018-01-01 16:51 | Neurology Progress Note ---
Interim History Interim History Interim History Ms. Yung feels very well. She has been seizure-free. The mind is clear. She is a little jittery today. She denies any new neurologic symptoms. Review of Systems Neuro Review of Systems Benign. Objective Physical Exam Last Vital Signs Date Time Temp Pulse Resp B/P (MAP) Pulse Ox O2 Delivery O2 Flow Rate FiO2 01/01/18 13:03 97.6 01/01/18 12:00 67 20 125/91 99 Room Air 01/01/18 08:45 21 12/30/17 18:06 15.0 Neurologic Exam Objective PHYSICAL EXAMINATION: GENERAL: She is a well-developed, well-nourished, pleasant, jittery, black lady , lying in bed, in no acute distress. HEAD: Normocephalic and atraumatic. EENT: Examination benign. NECK: No neck rigidity was observed. NEUROLOGIC EXAMINATION: MENTAL STATUS EXAMINATION: She was awake and alert. She was oriented to person, place, and time except for the exact date and name of the hospital. She was able to recall 3/3 words immediately, but could only remember 2/3 words in 1 minute and 3 minutes. She was able to remember presidents, Trump through [place] with hints. Her mathematical skills were impaired. Her visuospatial function was also impaired. SPEECH: She had no dysarthria. LANGUAGE: She had a mild anomia for low-frequency words, but it is unclear as to what her educational level. CRANIAL NERVE EXAMINATION: II: The visual espinosa were intact to confrontation testing. III, IV & : External ocular movements were full and the pupils 3 mm in diameter, equal, round, regular, and reactive to light. V: She had normal facial sensations and the temporales, masseters, and pterygoids functioned normally. VII: She had normal facial expressions and no facial asymmetry. VIII: She was able to hear well bilaterally and had no nystagmus. IX: The palate moved symmetrically on phonation. X: She had no hoarseness of voice. XI: The sternocleidomastoids and trapezii functioned normally. XII: The tongue was in the midline without any fasciculations or atrophy. MOTOR SYSTEM: The tone was normal in all four extremities. Examination of muscle mass revealed no focal wasting. Examination of power revealed grade 5/5 power in all muscle groups . SENSORY EXAMINATION: She had intact sensations to pinprick, light touch, and graphesthesia. COORDINATION: She performed well on ntcuuk-je-orlz and ziyv-vt-ozcw testing. On Romberg test, she swayed, but did not fall to one side or the other. REFLEXES: 1++ and bilaterally symmetrical at the biceps, triceps, brachioradialis, and knees, and 1+ at both ankles. The plantar responses were flexor bilaterally. STANCE: She had a minimally wide-based, but stable stance. GAIT: She walked with a minimally wide-based, but stable gait. Impression/Recommendations Diagnostic Impression 1. Ms. Nikki Yung is a 57-year-old, right-handed, black lady, who does have a past history of hypertension, dyslipidemia, seizures since age 18 and headaches labeled migraines, who was hospitalized after having a single seizure at home. By report, her seizures are generalized tonic-clonic seizures. She had been using cocaine and alcohol prior to seizure. 2. She feels well today. She has been seizure-free. She is tolerating her Keppra well. She is exhibiting jittery behavior. 3. On neurological examination, at this time, she does have problems with orientation, recent and remote memory, visuospatial function, higher cognitive function, and language. She, however, does not demonstrate any focal or lateralizing neurological findings. 4. Laboratory data on admission revealed a revealed relatively normal CBC. A blood glucose elevated to 138. A toxicology screen positive for cocaine and a relatively normal urinalysis. 5. A CT scan of the brain performed in the near past was normal. 6. The patient's history, neurological examination, and laboratory data are most compatible with an underlying generalized tonic-clonic seizure disorder with possible relationship to alcohol and cocaine use. The seizures are not well controlled because she is not taking her antiseizure medicine on a prophylactic basis, and only takes it when she has a seizure. She also consumes large quantities of alcohol, and cocaine, which could be bringing on her seizures. Recommendations 1. Continue present management. 2. She was again told about the basics of seizure hygiene. She was told to have 3 meals a day. She was told to sleep well - that is 7 hours or more in a 24-hour period. She was also told to take her antiseizure medicine on a regular basis. She was told to use no illicit drugs. She was told to use no alcohol. 3. Await EEG to evaluate the patient for the type of seizure disorder. 4. Continue Keppra 500 mg q.12 h. for seizure prophylaxis. 5. The patient should be followed by a neurologist on a regular basis for management of her seizure disorder. Nic Melo M.D., M.S.P.H. NIC MELO January 01, 2018 16:51
[2018-01-01 20:00] VITALS: BP 120/83
[2018-01-02] VITALS: BP 130/80
[2018-01-02 04:00] VITALS: BP 118/72
[2018-01-02 08:00] VITALS: BP 118/78
[2018-01-02] MEDS: Topiramate 100mg tab ORAL SCH (08:49)
[2018-01-02 12:00] VITALS: BP 124/81
[2018-01-02] MEDS ORDERED: KEPPRA500 MG ORAL (14:19)
--- NOTE | 2018-01-02 14:22 | General Progress Note ---
Assessment/Plan Problem List: (1) Seizure disorder ICD Codes: G40.909 - Epilepsy, unspecified, not intractable,without status epilepticus SNOMED: 147783490 (2) COPD (chronic obstructive pulmonary disease) ICD Codes: J44.9 - Chronic obstructive pulmonary disease, unspecified SNOMED: 58586764 (3) Cocaine abuse ICD Codes: F14.10 - Cocaine abuse, uncomplicated SNOMED: 56166712 (4) Hypernatremia ICD Codes: E87.0 - Hyperosmolality and hypernatremia SNOMED: 27016021 Assessment/Plan cont as is Dc today Subjective Allergies: Coded Allergies: No Known Allergies (Unverified , 02/16/15) UNABLE TO ASSESS (Unverified , 12/30/17) Subjective feels ok Objective Last 24 Hour Vital Signs Date Time Temp Pulse Resp B/P (MAP) Pulse Ox O2 Delivery O2 Flow Rate FiO2 01/02/18 12:00 98.1 68 18 124/81 98 Room Air 98.1 01/02/18 12:00 63 01/02/18 08:00 68 01/02/18 08:00 98.0 66 18 118/78 100 Room Air 98.0 01/02/18 07:22 65 16 Room Air 21 01/02/18 04:00 61 01/02/18 04:00 97.3 66 20 118/72 99 Room Air 97.3 01/02/18 00:00 97.8 68 20 130/80 91 Room Air 97.8 01/02/18 00:00 59 01/01/18 20:00 59 01/01/18 20:00 98.6 59 20 120/83 100 Room Air 98.6 01/01/18 19:08 62 16 Room Air 21 01/01/18 16:00 98.6 63 20 136/79 100 Room Air 98.6 01/01/18 16:00 82 Intake and Output 01/01/18 01/02/18 19:00 07:00 # Voids 3 6 Height (Feet): 5 Height (Inches): 4.00 Weight (Pounds): 120 Cardiovascular: normal rate Respiratory/Chest: lungs clear DARYN WEINER January 02, 2018 14:22
--- NOTE | 2018-01-02 19:15 | Electroencephalogram ---
DATE OF PROCEDURE: 01/01/2018 REQUESTING PHYSICIAN: Jeffrey Acosta M.D. HISTORY: This EEG was performed on a 57-year-old lady who has had seizures since age 18. She describes her seizures as being generalized tonic-clonic. Recently her seizures have been associated with cocaine and alcohol use. The purpose of this EEG was to better delineate the type of seizure disorder. TECHNICAL NOTE: This EEG was performed on a [employer] Digital [employer] Unit with electrodes placed on the scalp according to the International 10-20 system. Ruoes-ly-nnjsu and pieiw-dk-ofr montages were used. The EEG was technically satisfactory and was performed in the awake and drowsy states. OBSERVATIONS: In the best-awake state, the background activity consisted of 9-10 Hz posteriorly predominant well-developed alpha waveforms, which attenuated on eye opening. Drowsiness was characterized by dissolution of the alpha rhythm and the appearance of slow frequencies in the 5-6 Hz theta range. Photic stimulation was performed at various different frequencies and produced no abnormalities. No focal abnormalities or epileptiform discharges were seen. IMPRESSION: Normal awake and drowsy EEG. COMMENT: Normal EEG does not rule out a seizure disorder. Nic Melo M.D., M.S.P.H. DR: Juan Ramon JOB#: [id number] MTDD
--- NOTE | 2018-01-04 11:57 | Diagnostic Imaging Report ---
EXAM: CT Head Without Intravenous Contrast CLINICAL HISTORY: SZ TECHNIQUE: Axial computed tomography images of the head/brain without intravenous contrast. CTDI is 70.38 mGy and DLP is 1432 mGy-cm. One or more of the following dose reduction techniques were used: automated exposure control, adjustment of the mA and/or kV according to patient size, use of iterative reconstruction technique. COMPARISON: CT head 02/16/15 FINDINGS: Brain: Unremarkable. No hemorrhage. No significant white matter disease. No edema. Ventricles: Unremarkable. No ventriculomegaly. Bones/joints: Unremarkable. No acute fracture. Soft tissues: Unremarkable. Sinuses: Unremarkable as visualized. No acute sinusitis. Mastoid air cells: Unremarkable as visualized. No mastoid effusion. IMPRESSION: Unremarkable
--- NOTE | 2018-01-04 12:49 | Discharge Summary ---
Discharge Summary Hospital Course Date of Admission December 30, 2017 at 16:40 Date of Discharge January 02, 2018 at 16:20 Admitting Diagnosis SEIZURE DISORDER, DEHYDRATION HPI Nikki Yung is a 57 year old female who was admitted on December 30, 2017 at 16:40 for Seizure Disorder, Dehydration Hospital Course [id number] Discharge Discharge Disposition Patient was discharged to Home (01) Destiene Morris NP January 04, 2018 12:49
--- NOTE | 2018-01-05 01:45 | Discharge Summary 2 SIG ---
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 BRIEF HOSPITAL COURSE: The patient is a 57-year-old -[place] female, who lives at home apparently with her kids. The patient was brought in by paramedics for seizure, which was again unwitnessed at home. The patient does have a history of seizure disorder and admitted that she was not taking her antiseizure medications regularly. She has medical history significant for hypertension, chronic obstructive pulmonary disease, and seizures. On arrival to ED, she was given Ativan. Blood work showed sodium level of 148. There was no leukocytosis. Urine toxicology was positive for cocaine. She had an EKG done that showed sinus tachycardia with no ischemic changes. Head CT was unremarkable. She was given a loading dose of Keppra. She was then admitted for evaluation of seizure disorder, hypernatremia, and cocaine abuse. She was admitted to telemetry. She was placed on neuro checks and seizure precautions. Neurology evaluation was done. On neurological examination, she has problems with orientation, recent and remote memory, visuospatial function, higher cognitive function and language. There was no focal or lateralizing neurologic findings. The patient's history and neurological exam compatible with generalized tonic clonic seizure disorder with possible relationship to alcohol and cocaine use. Seizures not well controlled because of noncompliance with antiseizure medications. She also consumes large quantities of alcohol and cocaine, which could be contributing to her seizures. She was given basics of seizure hygiene. She was advised to take her antiseizure medications on regular basis and was told not to use any illicit drugs. No alcohol. She was maintained on Keppra 500 mg q.12 hours. She was recommended to follow up with a neurologist on a regular basis for management of her seizure disorder. EEG was done. EEG was normal with no focal abnormalities or epileptiform discharges seen. Social service was consulted due to the patient's drug problem and noncompliance with medications. She was eventually discharged home. Advised to follow up with PMD as outpatient. FINAL DIAGNOSES: 1. Seizure disorder with acute exacerbation. 2. Cocaine abuse. 3. Hypernatremia. 4. Chronic obstructive pulmonary disease. 5. Noncompliance with medications. DISPOSITION: The patient was discharged home. DISCHARGE MEDICATIONS: Refer to medication list. Continue Keppra 500 mg q.12 h. DISCHARGE INSTRUCTIONS: Follow up with PMD in a week. Needs to go to Neurology for seizure maintenance. Jeffrey Acosta M.D. I have been assigned to dictate discharge summary on this account and I was not involved in the patient's management. Destinee Morris N.P. DR: JANE JOB#: [id number] CC:
== END 2018-01-02 16:20 | disposition home or self-care (01) | DRG 53 ==
LOC: EDBD 12:50 → EMR 13:15 → 2E 16:40 → EDBEDREQ 17:09 → 2E 23:49
DX: G40.419 Other generalized epilepsy and epileptic syndromes, intractable, without status epilepticus (principal); E87.0 Hyperosmolality and hypernatremia; F14.10 Cocaine abuse, uncomplicated; J44.9 Chronic obstructive pulmonary disease, unspecified; I10 Essential (primary) hypertension; E78.5 Hyperlipidemia, unspecified; F10.10 Alcohol abuse, uncomplicated; E86.0 Dehydration; Z91.14 Patient's other noncompliance with medication regimen
CPT/HCPCS: 36415; 70450; 80053; 80156; 80299; 80307; 80329; 81003; 82306; 82607; 82746; 83036; 84443; 85025; 85651; 86592; 93005; 94664; 95819; 99285

== ENCOUNTER 2018-05-31 21:05 | Emergency (ER) | payer MEDICAID, OTHER ==
[~2018-05-31] VITALS: Ht 157.5 cm; Wt 52.2 kg
[~2018-05-31 21:05] MED LIST changes: +EXCEDRIN MIGRA1 EAC1 PO; +KEPPRA500 MG ORAL; +PRAVACHOL40 MG ORAL
[2018-05-31 21:06] VITALS: BP 126/79
[2018-05-31] MEDS ORDERED: levETIRAcetam 1,000mg/NS100ml 100 ML IVPB ONE (21:30)
--- NOTE | 2018-05-31 21:31 | Emergency Room Report ---
History of Present Illness General Chief Complaint: Seizure Source: Patient, Medical Record, EMS Present Illness HPI Is a 58-year-old female with a history of seizure on Keppra. She also has a history of cocaine abuse and noncompliance. She presents with chief complaint of seizure. Witnessed by mom at home. Lasted for a few minutes. Postictal now. EMS. No trauma. Similar symptom in the past. She was recently admitted for seizure. Now patient is back to baseline. Denies any pain. She denies any nausea vomiting. She use cocaine yesterday. Said that she was compliant with her medication. She does not drive. Allergies: Coded Allergies: No Known Allergies (Unverified , 02/16/15) Patient History Past Medical History: see triage record, old chart reviewed, seizures Past Surgical History: other Pertinent Family History: none Social History: Reports: drug use Last Menstrual Period: 05/31/2018 Now: No Immunizations: other Reviewed Nursing Documentation: PMH: Agreed; PSxH: Agreed Nursing Documentation-PMH Past Medical History: No History, Except For Hx Hypertension: Yes Hx COPD: Yes Hx Cancer: No Hx Gastrointestinal Problems: No Hx Seizures: Yes Review of Systems Eye: Denies: eye pain, blurred vision ENT: Denies: ear pain, nose congestion, throat swelling Respiratory: Denies: cough, shortness of breath Cardiovascular: Denies: chest pain, palpitations Gastrointestinal: Denies: abdominal pain, diarrhea, nausea, vomiting Musculoskeletal: Denies: back pain, joint pain Skin: Denies: rash Neurological: Denies: headache, numbness Endocrine: Denies: increased thirst, increased urine Hematologic/Lymphatic: Denies: easy bruising All Other Systems: negative except mentioned in HPI Physical Exam Vital Signs Date Time Temp Pulse Resp B/P (MAP) Pulse Ox O2 Delivery O2 Flow Rate FiO2 05/31/18 21:06 99.6 112 16 143/93 99 Room Air 99.7 vitals with tachycardia. Sp02 EP Interpretation: reviewed, normal General Appearance: well appearing, no apparent distress, alert Head: normocephalic, atraumatic Eyes: bilateral eye PERRL, bilateral eye EOMI ENT: hearing grossly normal, normal pharynx, other - small tongue abrasion on right tip Neck: full range of motion, supple, no meningismus Respiratory: chest non-tender, lungs clear, normal breath sounds Cardiovascular #1: regular rate, rhythm, no murmur Gastrointestinal: normal bowel sounds, non tender, no mass, no organomegaly, no bruit, non-distended Musculoskeletal: back normal, gait/station normal, normal range of motion Psychiatric: mood/affect normal Skin: warm/dry Medical Decision Making Diagnostic Impression: Primary Impression: Seizure disorder Additional Impression: Cocaine abuse ER Course Patient with cocaine abuse secondary to noncompliance and drug abuse. She is otherwise stable. No evidence of any head trauma. She is back to baseline. I see no need for lab work or CT head. Patient is not driving so I see no need for DMV report. EKG Diagnostic Results Rate: tachycardiac Rhythm: NSR ST Segments: no acute changes Rhythm Strip Diag. Results Rhythm Strip Time: 21:29 EP Interpretation: yes Rate: 100 Rhythm: NSR, no PVC's, no ectopy Last Vital Signs Date Time Temp Pulse Resp B/P (MAP) Pulse Ox O2 Delivery O2 Flow Rate FiO2 05/31/18 21:06 99.6 112 16 143/93 99 Room Air 99.7 Status: improved Disposition: HOME, SELF-CARE Condition: Stable Patient Instructions: Seizure, Adult Additional Instructions: Stop using drugs. Follow-up with your doctor in 7 days. Return if worse. Take your seizure medication. Abdiel Trinidad MD May 31, 2018 21:31
[2018-05-31 22:24] VITALS: BP 126/79
== END 2018-05-31 22:24 | disposition home or self-care (01) ==
LOC: EDBD 21:05 → EMR 22:21
DX: G40.909 Epilepsy, unspecified, not intractable, without status epilepticus (principal); F14.10 Cocaine abuse, uncomplicated; I10 Essential (primary) hypertension; J44.9 Chronic obstructive pulmonary disease, unspecified
CPT/HCPCS: 93005; 96374; 99284; J1953

== ENCOUNTER 2018-10-11 11:47 | Emergency (ER) | payer OTHER ==
[~2018-10-11] VITALS: Ht 157.5 cm; Wt 49.9 kg
--- NOTE | 2018-10-11 11:54 | NUR ---
ED Nurse Note: Per EMS, patient had confusion ~ 30min ago.
--- NOTE | 2018-10-11 11:55 | NUR ---
ED Nurse Note: PT. AAOX4. AMBULATORY. BROUGHT IN TO ER DUE TO EPISODE OF SLURRED SPEECH AND CONFUSION THAT LASTED ABOUT 3 MINUTES. NO SEIZURE EPISODE.PT. CHANGED INTO A GOWN. ATTACHED TO TITLE LAWYER.PADDED SIDE RAILS ON, MAINTAINED ORAL AIRWAY. ACCUCHECK AT THE BEDSIDE IS 109. ERMDD MADE AWARE
--- NOTE | 2018-10-11 12:51 | NUR ---
ED Nurse Note: PT WENT DOWN TO CT
[2018-10-11 12:56] LABS: APPEARANCE,URINE CLEAR; BILIRUBIN, URINE NEGATIVE (NEGATIVE); COLOR,URINE PALE YELLOW; GLUCOSE, URINE (UA) NEGATIVE (NEGATIVE); KETONES,URINE NEGATIVE (NEGATIVE); LEUKOCYTE ESTERASE ,URINE 2+ (NEGATIVE); NITRITE,URINE NEGATIVE (NEGATIVE); PH,URINE 5 (4.5-8.0); PROTEIN,URINE NEGATIVE (NEGATIVE); UROBILINOGEN,URINE NORMAL MG/DL (0.0-1.0)
[2018-10-11 13:01] LABS: EOSINOPHILS % (AUTO) 2.1 % (0.0-3.0); HEMATOCRIT 43.1 % (37.0-47.0); LYMPHOCYTES % (AUTO) 25.4 % (20.0-45.0); MEAN CORPUSCULAR VOLUME 95 FL (80-99); MONOCYTES % (AUTO) 4.8 % (1.0-10.0); NEUTROPHILS % (AUTO) 66.8 % (45.0-75.0); PLATELET COUNT 167 K/UL (150-450); RED BLOOD COUNT 4.52 M/UL (4.20-5.40); RED CELL DISTRIBUTION WIDTH 13.3 % (11.6-14.8); WHITE BLOOD COUNT 4.8 K/UL (4.8-10.8)
[2018-10-11 13:17] LABS: ANION GAP 13 mmol/L (5-15); BLOOD UREA NITROGEN 15 mg/dL (7-18); CALCIUM 9.7 MG/DL (8.5-10.1); CARBON DIOXIDE 20 MMOL/L (21-32); CHLORIDE 100 MMOL/L (98-107); CREATININE 0.6 MG/DL (0.55-1.30); POTASSIUM 5.5 MMOL/L (3.5-5.1); SODIUM 133 MMOL/L (136-145)
--- NOTE | 2018-10-11 13:17 | Diagnostic Imaging Report ---
Indications: Altered mental status, slurred speech and confusion for about 3 minutes Technique: Spiral acquisitions obtained through the brain. Angled axial and coronal 5 x 5 mm slices were reconstructed. Total dose length product 1358.14 mGycm. CTDI vol(s) 70.38 mGy. Dose reduction achieved using automated exposure control Comparison: 12/30/2017 Findings: No acute intercranial hemorrhage nor edema, mass effect, nor midline shift. Normal manzanares-white differentiation. Normal-sized ventricles and extra axial CSF spaces. Visualized orbits and sinuses are unremarkable. Intact calvarium. No significant interim change Impression: Negative The CT scanner at [facility] is accredited by the [employer] [place] [employer] and the scans are performed using protocols designed to limit radiation exposure to as low as reasonably achievable to attain images of sufficient resolution adequate for diagnostic evaluation.
[2018-10-11 13:21] LABS: ALANINE AMINOTRANSFERASE 25 U/L (12-78); ALBUMIN 4.6 G/DL (3.4-5.0); ALBUMIN/GLOBULIN RATIO 1.1 (1.0-2.7); ALKALINE PHOSPHATASE 68 U/L (46-116); ASPARTATE AMINO TRANSFERASE 34 U/L (15-37); BILIRUBIN,TOTAL 0.6 MG/DL (0.2-1.0)
--- NOTE | 2018-10-11 13:33 | Emergency Room Report ---
History of Present Illness General Chief Complaint: Altered Level of Consciousness Source: Patient, Family Member, Medical Record, EMS Present Illness HPI 58-year-old female history bipolar disorder schizophrenia, convex migraines, seizures on Keppra, comes in for an episode of nonsensical speech and confusion that was similar to what she's had in the past with seizures, witnessed by daughter, then patient quickly returned to normal, and she does not recollect any of this. This is very typical for kind of seizure-like reports she's had in the past. Patient has not had any slurred speech, numbness, tingling, weakness, syncope, and did not actually progressed for full seizure and then shortly after cannot recollect what happened. Allergies: Coded Allergies: No Known Allergies (Unverified , 02/16/15) Patient History Past Medical History: see triage record Reviewed Nursing Documentation: PMH: Agreed; PSxH: Agreed Nursing Documentation-PMH Past Medical History: No History, Except For Hx Hypertension: Yes Hx COPD: Yes Hx Cancer: No Hx Gastrointestinal Problems: No History Of Psychiatric Problem: Yes - Depression Hx Neurological Problems: Yes - MIGRAINE Hx Seizures: Yes Review of Systems All Other Systems: negative except mentioned in HPI Physical Exam Vital Signs Date Time Temp Pulse Resp B/P (MAP) Pulse Ox O2 Delivery O2 Flow Rate FiO2 10/11/18 11:46 98.4 90 16 160/100 97 Room Air Sp02 EP Interpretation: reviewed, normal General Appearance: no apparent distress, alert, non-toxic Head: normocephalic Eyes: bilateral eye normal inspection, bilateral eye PERRL, bilateral eye EOMI ENT: normal ENT inspection, hearing grossly normal, normal pharynx, no angioedema, normal voice, moist mucus membranes Neck: normal inspection, full range of motion, supple, supple/symm/no masses Respiratory: chest non-tender, lungs clear, normal breath sounds, no rhonchi, no respiratory distress, no retraction, no accessory muscle use, no wheezing, chest symmetrical, palpation of chest normal Cardiovascular #1: normal peripheral pulses, regular rate, rhythm, no edema, no gallop, no JVD, no murmur, no rub Cardiovascular #2: 2+ radial (R), 2+ radial (L) Gastrointestinal: normal inspection, non tender, soft, no mass, no guarding, no rebound Rectal: deferred Genitourinary: normal inspection, no CVA tenderness Musculoskeletal: back normal, gait/station normal, normal range of motion, non- tender, no calf tenderness Neurologic: alert, responsive, leadership program associate III-XII nml as tested, motor strength/tone normal, sensory intact, speech normal Psychiatric: judgement/insight normal, memory normal, mood/affect normal, no suicidal/homicidal ideation Skin: normal color, no rash, warm/dry, normal turgor Lymphatic: no adenopathy Medical Decision Making ER Course Patient slightly elevated potassium, but normal renal function, suspect slight hemolysis, EKG without hyperkalemic changes, head CT normal, patient nonhypertensive, nondiabetic, do not suspect patient had a TIA, symptoms are consistent with her previous seizure auras, and she does not recollect the event which is more consistent with seizure-like aura, will discharge with neurology follow-up EKG Diagnostic Results EKG Time: 12:35 EP Interpretation: no stemi Rate: normal Rhythm: NSR ST Segments: no acute changes ASA given to the pt in ED: Yes Rhythm Strip Diag. Results Rhythm Strip Time: 13:54 EP Interpretation: yes Rate: 68 Rhythm: NSR, no PVC's, no ectopy CT/MRI/US Diagnostic Results CT/MRI/US Diagnostic Results : Imaging Test Ordered: ct head Impression no acute dz Last Vital Signs Date Time Temp Pulse Resp B/P (MAP) Pulse Ox O2 Delivery O2 Flow Rate FiO2 10/11/18 11:46 98.4 90 16 160/100 97 Room Air Disposition: HOME, SELF-CARE Condition: Stable Referrals: [facility],REFERRING (PCP) EWELINA PETER M.D Oct 11, 2018 13:33
[2018-10-11 14:12] VITALS: BP 158/60
--- NOTE | 2018-10-11 14:12 | NUR ---
ED Nurse Note: Per Dr. Fischer. pt. is ok to eat. gave a sandwich and juice
[2018-10-11 14:40] VITALS: BP 158/60
--- NOTE | 2018-10-11 14:40 | NUR ---
ED Nurse Note: PT. AAOX4. LEFT WITH A STEADY GAIT. LEFT WITH ALL BELONGINGS. PT. EDUCATION DONE REGARDING D/C INSTRUCTIONS. PT. VERBALIZED THE UNDERSTANDING. VSS. ID ARMBAND REMOVED
--- NOTE | 2018-10-12 15:15 | Cardiology Report ---
APPROVED REPORT EKG Measurement Heart [id number] Normal sinus rhythm Normal ECG
== END 2018-10-11 14:40 | disposition home or self-care (01) ==
LOC: EDBD 11:47 → EMR 13:11
DX: G40.909 Epilepsy, unspecified, not intractable, without status epilepticus (principal); I10 Essential (primary) hypertension; F32.9 Major depressive disorder, single episode, unspecified; F20.9 Schizophrenia, unspecified
CPT/HCPCS: 36415; 70450; 80053; 81003; 84484; 85025; 93005; 99284

== ENCOUNTER 2019-06-19 11:11 | Emergency (ER) | payer OTHER ==
[~2019-06-19] VITALS: Ht 162.6 cm; Wt 59.0 kg
[2019-06-19 11:15] VITALS: BP 157/88
--- NOTE | 2019-06-19 11:15 | NUR ---
ED Nurse Note: Patient brought in by ambulacne from home c/o right flank pain that started this morning, patient states that shes had episodes of intermittent sharp pain, initially she rates her pain a 8/ pain however has subsided, denies any nausea or vomiting. patient is alert and oriented x4, ambulatory with a steady gait, VSS. patient placed on monitoring engineer, IV started on left forearm 20 gauge, will continue to monitor
[2019-06-19 11:41] LABS: BASOPHILS % (AUTO) 1.3 % (0.0-2.0); EOSINOPHILS % (AUTO) 4.2 % (0.0-3.0); HEMATOCRIT 39.1 % (37.0-47.0); LYMPHOCYTES % (AUTO) 37.2 % (20.0-45.0); MEAN CORPUSCULAR VOLUME 90 FL (80-99); NEUTROPHILS % (AUTO) 52.3 % (45.0-75.0); PLATELET COUNT 219 K/UL (150-450); RED BLOOD COUNT 4.35 M/UL (4.20-5.40); RED CELL DISTRIBUTION WIDTH 12.2 % (11.6-14.8); WHITE BLOOD COUNT 5.1 K/UL (4.8-10.8)
[2019-06-19 11:45] LABS: APPEARANCE,URINE CLEAR; BILIRUBIN, URINE NEGATIVE (NEGATIVE); COLOR,URINE PALE YELLOW; GLUCOSE, URINE (UA) NEGATIVE (NEGATIVE); KETONES,URINE NEGATIVE (NEGATIVE); LEUKOCYTE ESTERASE ,URINE 1+ (NEGATIVE); NITRITE,URINE NEGATIVE (NEGATIVE); PH,URINE 5 (4.5-8.0); PROTEIN,URINE 2+ (NEGATIVE); UROBILINOGEN,URINE NORMAL MG/DL (0.0-1.0)
--- NOTE | 2019-06-19 11:48 | Emergency Room Report ---
History of Present Illness General Chief Complaint: Abdominal Pain Source: Patient, Family Member Present Illness HPI 59-year-old female comes ER with colicky sharp right flank pain radiating up to her right upper quadrant that started yesterday, got more severe today, did not try medications, does report certain positions seem to make it better, denies any relationship with food, does report associated nausea but did not vomit, no diarrhea, no hematuria, no dysuria, no other symptoms. Allergies: Coded Allergies: No Known Allergies (Unverified , 02/16/15) Patient History Past Medical History: see triage record Now: No Reviewed Nursing Documentation: PMH: Agreed; PSxH: Agreed Nursing Documentation-PMH Past Medical History: No History, Except For Hx Hypertension: Yes Hx COPD: Yes Hx Diabetes: Yes Hx Cancer: No Hx Gastrointestinal Problems: No Hx Neurological Problems: Yes - SEIZURE Hx Seizures: Yes Review of Systems All Other Systems: negative except mentioned in HPI Physical Exam Vital Signs Date Time Temp Pulse Resp B/P (MAP) Pulse Ox O2 Delivery O2 Flow Rate FiO2 06/19/19 10:58 98.2 70 16 157/129 (138) 99 Room Air Sp02 EP Interpretation: reviewed, normal General Appearance: no apparent distress, alert, non-toxic Head: normocephalic Eyes: bilateral eye normal inspection, bilateral eye PERRL, bilateral eye EOMI ENT: normal ENT inspection, hearing grossly normal, normal pharynx, no angioedema, normal voice, moist mucus membranes Neck: normal inspection, full range of motion, supple, supple/symm/no masses Respiratory: chest non-tender, lungs clear, normal breath sounds, chest symmetrical, palpation of chest normal Cardiovascular #1: normal peripheral pulses, regular rate, rhythm Cardiovascular #2: 2+ radial (R), 2+ radial (L), 2+ dorsalis pedis (R), 2+ dorsalis pedis (L) Gastrointestinal: normal inspection, non tender, soft, no mass, no guarding, no rebound Rectal: deferred Genitourinary: normal inspection, no CVA tenderness Musculoskeletal: back normal, gait/station normal, normal range of motion, non- tender, no calf tenderness Neurologic: alert, responsive, certified credit counselor III-XII nml as tested, motor strength/tone normal, sensory intact, speech normal Psychiatric: judgement/insight normal, memory normal, mood/affect normal, no suicidal/homicidal ideation Lymphatic: no adenopathy Medical Decision Making Diagnostic Impression: Primary Impression: Abdominal pain Additional Impression: UTI (urinary tract infection) ER Course Patient with abdominal pain, but normal exam. CT showed diverticulosis, no diverticulitis, and no explanation for R-sided abd pain; will dc home with abx , bentyl, instructions to return if symptoms recur, or to f/u with PMD windy. CT/MRI/US Diagnostic Results CT/MRI/US Diagnostic Results : Imaging Test Ordered: ct a/p Impression no explanation for R abd pain; diverticulosis, no diverticulitis Last Vital Signs Date Time Temp Pulse Resp B/P (MAP) Pulse Ox O2 Delivery O2 Flow Rate FiO2 06/19/19 10:58 98.2 70 16 157/129 (138) 99 Room Air Disposition: HOME, SELF-CARE Condition: Stable EWELINA PETER M.D Jun 19, 2019 11:48
[2019-06-19 11:53] LABS: ANION GAP 10 mmol/L (5-15); BLOOD UREA NITROGEN 12 mg/dL (7-18); CALCIUM 9.1 MG/DL (8.5-10.1); CARBON DIOXIDE 26 MMOL/L (21-32); CHLORIDE 109 MMOL/L (98-107); CREATININE 0.8 MG/DL (0.55-1.30); POTASSIUM 3.7 MMOL/L (3.5-5.1); SODIUM 145 MMOL/L (136-145)
[2019-06-19 11:57] LABS: ALANINE AMINOTRANSFERASE 25 U/L (12-78); ALBUMIN 3.7 G/DL (3.4-5.0); ALKALINE PHOSPHATASE 80 U/L (46-116); ASPARTATE AMINO TRANSFERASE 20 U/L (15-37); BILIRUBIN,TOTAL 0.2 MG/DL (0.2-1.0)
--- NOTE | 2019-06-19 12:03 | NUR ---
ED Nurse Note: Patient complains of right upper abdominal pain, received verbal order from Dr. Fischer for 4mg morphine
[2019-06-19] MEDS ORDERED: Morphine Sulfate 4mg/ml Inj (IV USE ONLY) IVP ONE (12:15)
[2019-06-19 14:30] VITALS: BP 138/82
--- NOTE | 2019-06-19 14:30 | NUR ---
ER DISCHARGE NOTE: Patient is cleared to be discharged per ERMD, pt is aox4, on room air, with stable vital signs. pt was given dc and prescription instructions, pt was able to verbalize understanding, pt id band and iv site removed without complications. pt is able to ambulate with steady gait. pt took all belongings.
[2019-06-19] MEDS ORDERED: NITROFURANTOIN100 M2 ORAL (14:36)
[2019-06-19] MEDS ORDERED: IBUPROFEN600 MG ORAL (14:36)
[2019-06-19] MEDS ORDERED: DICYCLOMINE HCL10 MG ORAL (14:36)
--- NOTE | 2019-06-19 20:18 | Diagnostic Imaging Report ---
CT ABDOMEN AND PELVIS WITHOUT CONTRAST INDICATION: Abdominal pain TECHNIQUE: Continuous helical transaxial imaging of the abdomen and pelvis was obtained from the lung bases to the pubic symphysis. Coronal 2-D reformats were also obtained. Study obtained in a Siemens sensation [address] Automatic Exposure Control was utilized. Total Dose length Product (DLP): 83.[address] Dose Index Volume (CTDIvol): 16.2 mGy COMPARISON: None FINDINGS: Lower chest:: There are cystic changes of the lung bases. Minimal left basilar subsegmental atelectasis. Hepatobiliary:: Unremarkable. Genitourinary:: Unremarkable. Adrenals:: Nonspecific left adrenal gland thickening. Pancreas:: Unremarkable. Gastrointestinal:: No evidence of obstruction. Appendix is normal. Extensive colonic diverticulosis without evidence of acute diverticulitis. Spleen: : Unremarkable. Peritoneum:: No free air or fluid collection. Bones and soft tissues:: There are multilevel discogenic degenerative changes of the visualized spine. Vasculature: Mild aortoiliac atherosclerotic calcification. IMPRESSION: Colonic diverticulosis without evidence of acute diverticulitis. The CT scanner at [facility] is accredited by the [employer] and the scans are performed using protocols designed to limit radiation exposure to as low as reasonably achievable to attain images of sufficient resolution adequate for diagnostic evaluation
== END 2019-06-19 14:30 | disposition home or self-care (01) ==
LOC: EDBD 11:11 → EMR 11:35
DX: N39.0 Urinary tract infection, site not specified (principal); R10.9 Unspecified abdominal pain; J44.9 Chronic obstructive pulmonary disease, unspecified; E11.9 Type 2 diabetes mellitus without complications; I10 Essential (primary) hypertension; K57.90 Diverticulosis of intestine, part unspecified, without perforation or abscess without bleeding
CPT/HCPCS: 36415; 74176; 80053; 81003; 83690; 85025; 96361; 96374; 96375; 99284; J2270; J2405; J7030